=== PATIENT | male | born 1940 | race Caucasian/White ===

== ENCOUNTER 2016-03-15 09:10 | Emergency (ER) | payer OTHER ==
[~2016-03-15] VITALS: Ht 182.9 cm; Wt 122.5 kg
[2016-03-15] MEDS ORDERED: PROAIR HFA8.5 GM INH (10:09)
[2016-03-15] MEDS ORDERED: ADVAIR 500-501 EACH INH (10:09)
[2016-03-15] MEDS ORDERED: LOSARTAN POTAS100 M1 PO (10:09)
[2016-03-15] MEDS ORDERED: HYDROCHLOROTHIA25 M1 PO (10:10)
--- NOTE | 2016-03-15 10:14 | RADIOLOGY REPORT ---
EXAMINATION: XR PORTABLE CHEST CLINICAL INFORMATION: CHF. SOB. COMPARISON: None TECHNIQUE: Portable AP view of the chest was obtained. FINDINGS: Both lungs are well-expanded and clear of acute process. The heart size and pulmonary vascularity is normal. No gross bony abnormality seen. IMPRESSION: Unremarkable chest exam.
--- NOTE | 2016-03-15 11:53 | ED DYSPNEA/ASTHMA COMPLAINT ---
History of Present Illness General Chief Complaint: Dyspnea (COPD, CHF, Other) Stated Complaint: BIBA, SOB Source: patient, family, old records Exam Limitations: no limitations Vital Signs & Intake/Output Vital Signs & Intake/Output Vital Signs Date Time Temp Pulse Resp B/P Pulse O2 O2 Flow FiO2 Ox Delivery Rate 03/15 1134 98.2 70 19 178/82 94 Nasal 2.0L Cannula 03/15 1130 95 Nasal 3.0L Cannula 03/15 1004 95 Nasal 2.0L Cannula 03/15 0954 95 Nasal 3.0L Cannula 03/15 0936 97.6 68 20 180/74 95 Nasal 2.0L Cannula Allergies Uncoded Allergies: Allergy Other NKA Food Allergies NKA Med Allergies NKDA Reconcile Medications Albuterol Sulfate (Proair Hfa) 90 MCG HFA.AER.AD 2 PUF INH Q4-6 PRN PRN ASTHMA (Reported) Fluticasone/Salmeterol (Advair 500-50 Diskus) 500 MCG-50 MCG/DOSE BLST.W.DEV 1 PUF INH BID ASTHMA (Reported) Hydrochlorothiazide 25 MG TABLET 1 TAB PO DAILY FLUID (Reported) Losartan Potassium 100 MG TABLET 1 TAB PO DAILY HYPERTENSION (Reported) Triage Note: ARRIVED VIA AMBULANCE. NON PRODUCTIVE COUGH X 1 WEEK, SOB SINCE YESTERDAY. Triage Nurses Notes Reviewed? yes Onset: Last week Duration: day(s):, constant, continues in ED, getting worse Timing: recent history Severity: moderate Activities at Onset: activity Prior Episodes/Possible Cause: illness exposure Modifying Factors: Improves With: rest. Worsens With: movement. Associated Symptoms: cough, wheezing, weakness HPI: Spouse had upper respiratory infection last week. 2-3 days prior to admission patient complains of shortness of breath wet cough wheezing fatigue and increased pedal edema. He reports not taking his hydrochlorothiazide for this edema because of the need to urinate frequently. He denies chest pain nausea vomiting diarrhea abdominal pain headache dysuria rash bleeding. Past History Travel History Traveled to [place] past 21 day No Medical History Any Pertinent Medical History? see below for history Neurological: N EENT: N Cardiovascular: N Respiratory: asthma Gastrointestinal: N Hepatic: N Renal: N Musculoskeletal: N Psychiatric: N Endocrine: N Blood Disorders: N Cancer(s): N Surgical History Surgical History: non-contributory Psychosocial History What is your primary language Georgian Tobacco Use: Current Daily Use Daily Tobacco Use Amount/Type: Cigar or Pipe use daily ETOH Use: denies use Family History Hx Contributory? No Review of Systems Review of Systems Constitutional: Reports: see HPI, malaise, weakness. EENTM: Reports: no symptoms. Respiratory: Reports: see HPI, cough, short of breath, wheezing. Cardiovascular: Reports: see HPI, edema. GI: Reports: no symptoms. Genitourinary: Reports: no symptoms. Musculoskeletal: Reports: no symptoms. Skin: Reports: no symptoms. Neurological/Psychological: Reports: no symptoms. Hematologic/Endocrine: Reports: no symptoms. Immunologic/Allergic: Reports: no symptoms. All Other Systems: Reviewed and Negative Physical Exam Physical Exam General Appearance: well developed/nourished, alert, awake, anxious, moderate distress, obese Head: atraumatic, normal appearance Eyes: Bilateral: normal appearance, PERRL, EOMI. Ears, Nose, Throat: normal pharynx, normal ENT inspection Neck: normal inspection, supple, full range of motion, no midline tenderness Respiratory: chest non-tender, decreased breath sounds, crackles, rhonchi, wheezing, respiratory distress Cardiovascular: regular rate/rhythm, normal peripheral pulses, norml femoral pulses equa Peripheral Pulses: 4+ carotid (R), 4+ carotid (L) Gastrointestinal: normal bowel sounds, soft, non-tender, no organomegaly Extremities: normal inspection, normal capillary refill, normal range of motion, pedal edema Neurologic/Psych: no motor/sensory deficits, awake, alert, oriented x 3, normal gait, normal mood/affect, depressed affect Skin: intact, normal color Lymphatic: no anterior cervical samia Core Measures ACS in differential dx? No Severe Sepsis Present: No Septic Shock Present: No Progress Differential Diagnosis: asthma, bronchitis, CHF, COPD, pneumonia Plan of Care: Orders Procedure Date/time Status RAPID VIRAL INFLUENZA A 03/15 918 Complete BLOOD CULTURE 03/15 918 Active TROPONIN LEVEL 03/15 918 Complete COMPREHENSIVE METABOLIC PANEL 03/15 918 Complete CBC WITHOUT DIFFERENTIAL 03/15 918 Complete B-TYPE NATRIURETIC PEP (BNP) 03/15 918 Complete EKG 03/15 913 Active Laboratory Tests 03/15/16 1147: CBC w Diff MAN DIFF ORDERED, RBC 5.10, MCV 90.6, MCH 30.3, RDW 13.8, MPV 9.7, Gran % 93.3 H, Lymphocytes % 4.9 L, Monocytes % 1.4 L, Eosinophils % 0.2, Basophils % 0.2, Absolute Granulocytes 10.5 H, Absolute Lymphocytes 0.6 L, Absolute Monocytes 0.2, Absolute Eosinophils 0, Absolute Basophils 0, Platelet Estimate DECREASED, Normocytic RBCs VERIFIED, Normochromic RBCs VERIFIED, PUBS MCHC 33.4 03/15/16 1027: Anion Gap 12, Estimated GFR 50 L, BUN/Creatinine Ratio 17.9, Glucose 99, Calcium 9.3, Total Bilirubin 1.0, AST 22, ALT 30, Alkaline Phosphatase 82, Troponin I < 0.01, Afq-N-Jkyueyahryc Pept 344 H, Total Protein 7.2, Albumin 4.2 , Globulin 3.0, Albumin/Globulin Ratio 1.4 Microbiology 03/15 1230 BLOOD: Blood Culture - RECD Diagnostic Imaging: Viewed by Me: Radiology Read. Discussed w/RAD: Radiology Read. CXR Impression: no acute abnormality, no infiltrates Initial ED EKG: normal axis, normal intervals, normal p-waves, normal QRS complex, normal sinus rhythm, no ST T wave changes Prior EKG: unchanged Rhythm Strip: normal sinus rhythm Comments: Improved after interventions Departure Departure Time of Disposition: 1253 Disposition: HOME OR SELF CARE Condition: Stable Clinical Impression Primary Impression: Acute asthmatic bronchitis Secondary Impressions: Pedal edema Referrals: SANDI BROUSSARD MD (PCP/Family) Departure Forms: Customer Survey General Discharge Information Prescriptions: Current Visit Scripts Prednisone 1 TAB PO BID #10 TAB Amoxicillin 1 TAB PO BID #20 TAB Albuterol Sulfate 1 Vial INH/MELIDA Q4P PRN wheezing #50 Vial Ref 5 [Nebulizer] #1 UNIT Use as directed for wheezing Benzonatate (Tessalon Perle) 1 CAP PO TID #21 CAP Critical Care Note Critical Care Note Critical Care Time: non-applicable
[2016-03-15 11:54] LABS: ABSOLUTE BASOPHIL COUNT 0 /CUMM (0.0-0.2); ABSOLUTE EOSINOPHIL COUNT 0 /CUMM (0.0-0.7); ABSOLUTE GRANULOCYTE CT 10.5 /CUMM (1.4-6.5); ABSOLUTE LYMPH COUNT 0.6 /CUMM (1.2-3.4); ABSOLUTE MONOCYTE COUNT 0.2 /CUMM (0.10-0.60); BASOPHIL % 0.2 % (0.0-2.0); EOSINOPHIL % 0.2 % (0-5); GRANULOCYTE % 93.3 % (42.2-75.2); HEMATOCRIT 46.2 % (42-52); MEAN CORPUSCULAR HGB 30.3 PG (27.0-31.0); MEAN CORPUSCULAR HGB CONC 33.4 G/DL (33.0-37.0); MEAN CORPUSCULAR VOLUME 90.6 FL (80.0-94.0); MEAN PLATELET VOLUME 9.7 FL (7.4-10.4); PLATELET COUNT 129 /CUMM (130-400); RBC DISTRIBUTION WIDTH 13.8 % (11.5-14.5); WHITE BLOOD CELL COUNT 11.2 /CUMM (4.8-10.8)
[2016-03-15] MEDS ORDERED: ALBUTEROL2.5 MG/3 M INH/SOL (12:55)
[2016-03-15] MEDS ORDERED: PREDNISONE20 M1 PO (12:55)
[2016-03-15] MEDS ORDERED: Nebulizer (12:55)
[2016-03-15] MEDS ORDERED: AMOXICILLIN875 M1 PO (12:55)
[2016-03-15] MEDS ORDERED: TESSALON PERLE100 M1 PO (12:56)
[2016-03-15 13:10] VITALS: BP 170/70
== END 2016-03-15 13:11 ==
LOC: ERH 09:10
PROVIDERS: Emergency Medicine
DX: J45.909 Unspecified asthma, uncomplicated (principal); Z72.0 Tobacco use; R06.2 Wheezing; R60.0 Localized edema
CPT/HCPCS: 1263; 87040; 87804; 87804-59; 93005; 93010; 96374; 96375; J0696; J1940; J2930

== ENCOUNTER 2017-10-01 13:21 | Emergency (ER) | payer OTHER ==
[~2017-10-01] VITALS: Ht 182.9 cm; Wt 140.6 kg
[~2017-10-01 13:21] MED LIST: ADVAIR 500-501 EACH INH; ALBUTEROL2.5 MG/3 M INH/SOL; AMOXICILLIN875 M1 PO; HYDROCHLOROTHIA25 M1 PO; LOSARTAN POTAS100 M1 PO; Nebulizer; PREDNISONE20 M1 PO; PROAIR HFA8.5 GM INH; TESSALON PERLE100 M1 PO
[2017-10-01 13:48] VITALS: BP 189/87
[2017-10-01 14:39] LABS: ABSOLUTE BASOPHIL COUNT 0 /CUMM (0.0-0.2); ABSOLUTE EOSINOPHIL COUNT 0 /CUMM (0.0-0.7); ABSOLUTE LYMPH COUNT 0.6 /CUMM (1.2-3.4); ABSOLUTE MONOCYTE COUNT 0.2 /CUMM (0.10-0.60); BASOPHIL % 0.3 % (0.0-2.0); EOSINOPHIL % 0.3 % (0-5); HEMATOCRIT 41.2 % (42-52); MEAN CORPUSCULAR HGB 30.5 PG (27.0-31.0); MEAN CORPUSCULAR VOLUME 89.8 FL (80.0-94.0); MEAN PLATELET VOLUME 10.4 FL (7.4-10.4); PLATELET COUNT 151 /CUMM (130-400); RBC DISTRIBUTION WIDTH 13.9 % (11.5-14.5); RED BLOOD CELL CT 4.58 /CUMM (4.70-6.10); WHITE BLOOD CELL COUNT 6.9 /CUMM (4.8-10.8)
[2017-10-01 14:53] LABS: GRANULOCYTE % 86.9 % (42.2-75.2)
--- NOTE | 2017-10-01 15:19 | RADIOLOGY REPORT ---
EXAMINATION: XR CHEST CLINICAL INFORMATION: Shortness of breath and dizzy. COMPARISON: 03/15/2016. TECHNIQUE: 2 views of the chest were obtained. FINDINGS: Cardiomediastinal silhouette is stable. No vascular congestion or edema. Lungs well expanded. No consolidation or effusion. No pneumothorax. IMPRESSION: No acute cardiopulmonary findings.
--- NOTE | 2017-10-01 15:40 | CT SCAN REPORT ---
CT HEAD WITHOUT CONTRAST CLINICAL INFORMATION: Dizziness, weakness, and headache. COMPARISON: None available. TECHNIQUE: Contiguous axial imaging was performed from the skull base to vertex without intravenous administration of contrast. FINDINGS: There is no intracranial hemorrhage, hydrocephalus, extra-axial surface collection, midline shift, or other herniation pattern. Alvares to white matter differentiation is diffusely maintained without evidence of an evolved acute territorial infarct. The basilar cisterns are preserved. No significant soft tissue abnormality. No acute osseous abnormality. There is a small fluid level within the left sphenoid sinus which exhibits sclerotic wall thickening as the sequela of chronic sinusitis. The remaining paranasal sinuses and the mastoid air cells are clear. IMPRESSION: - No acute intracranial abnormality. - There is a small fluid level within the left sphenoid sinus which exhibits sclerotic wall thickening as the sequela of chronic sinusitis.
--- NOTE | 2017-10-01 19:09 | ED GENERAL ADULT ---
History of Present Illness General Chief Complaint: General Adult Stated Complaint: SENT BY DR DAVIDSON FOR EVAL NAUSEA,SWELLING ARMS/LEGS Source: patient, old records Exam Limitations: no limitations Vital Signs & Intake/Output Vital Signs & Intake/Output Vital Signs Date Time Temp Pulse Resp B/P B/P Pulse O2 O2 Flow FiO2 Mean Ox Delivery Rate 10/01 1348 98.7 56 24 189/87 94 Room Air Allergies Coded Allergies: No Known Allergies (10/01/17) Reconcile Medications Albuterol Sulfate (Proair Hfa) 90 MCG HFA.AER.AD 2 PUF INH Q4-6 PRN PRN ASTHMA (Reported) Albuterol Sulfate 2.5 MG/3 ML (0.083 %) VIAL.NEB 1 Vial INH/MELIDA Q4P PRN wheezing Amoxicillin 875 MG TABLET 1 TAB PO BID bronchitis Benzonatate (Tessalon Perle) 100 MG CAPSULE 1 CAP PO TID cough Fluticasone/Salmeterol (Advair 500-50 Diskus) 500 MCG-50 MCG/DOSE BLST.W.DEV 1 PUF INH BID ASTHMA (Reported) Hydrochlorothiazide 25 MG TABLET 1 TAB PO DAILY FLUID (Reported) Losartan Potassium 100 MG TABLET 1 TAB PO DAILY HYPERTENSION (Reported) [Nebulizer] bronchospasm Use as directed for wheezing Prednisone 20 MG TABLET 1 TAB PO BID bronchospasm Triage Note: [address] DAVIDSON FOR EVAL OF NAUSEA, DIZZINESS X1 DAY, FATIGUE AND SWELLING TO EXTREMITIES. COUGH IS CLEAR SPUTUM, +ORTHOPNEA. DENIES CP OR ABD PAIN. NO ACTIVE VOMITING AT THIS TIME Triage Nurses Notes Reviewed? yes HPI: Patient seen exclusively by PA. Past History Travel History Traveled to [place] past 21 day No Medical History Any Pertinent Medical History? see below for history Neurological: N EENT: N Cardiovascular: N Respiratory: asthma Gastrointestinal: N Hepatic: N Renal: N Musculoskeletal: N Psychiatric: N Endocrine: N Blood Disorders: N Cancer(s): N Surgical History Surgical History: non-contributory Psychosocial History What is your primary language Bulgarian Tobacco Use: Quit >30 days ago Family History Hx Contributory? No Review of Systems Review of Systems Constitutional: Reports: see HPI. EENTM: Reports: no symptoms. Respiratory: Reports: no symptoms. Cardiovascular: Reports: no symptoms. GI: Reports: see HPI. Genitourinary: Reports: no symptoms. Musculoskeletal: Reports: no symptoms. Skin: Reports: see HPI. Neurological/Psychological: Reports: no symptoms. Hematologic/Endocrine: Reports: no symptoms. Immunologic/Allergic: Reports: no symptoms. All Other Systems: Reviewed and Negative Physical Exam Physical Exam General Appearance: SEE BELOW Progress Differential Diagnoses I considered the following diagnoses in my evaluation of the patient: Plan of Care: Orders Procedure Date/time Status URINALYSIS 10/01 1349 Active TROPONIN LEVEL 10/01 1349 Complete LIPASE 10/01 1349 Complete COMPREHENSIVE METABOLIC PANEL 10/01 1349 Complete CBC WITHOUT DIFFERENTIAL 10/01 134 Complete B-TYPE NATRIURETIC PEP (BNP) 10/01 1349 Complete EKG 10/01 134 Active Laboratory Tests 10/01/17 1417: Anion Gap 7, Estimated GFR 42 L, BUN/Creatinine Ratio 18.8, Glucose 127 H, Calcium 9.1, Total Bilirubin 0.7, AST 19, ALT 20 L, Alkaline Phosphatase 61, Troponin I < 0.01, Iyb-F-Hvkarfmssve Pept 547 H, Total Protein 6.9, Albumin 3.9 , Globulin 3.0, Albumin/Globulin Ratio 1.3, Lipase 41, CBC w Diff NO MAN DIFF REQ, RBC 4.58 L, MCV 89.8, MCH 30.5, MCHC 34.0, RDW 13.9, MPV 10.4, Gran % 86.9 H, Lymphocytes % 9.4 L, Monocytes % 3.1, Eosinophils % 0.3, Basophils % 0.3, Absolute Granulocytes 6.0, Absolute Lymphocytes 0.6 L, Absolute Monocytes 0.2, Absolute Eosinophils 0, Absolute Basophils 0 Departure Departure Condition: Stable Referrals: Trina HUSTON,Ike Blank (PCP/Family) Departure Forms: Customer Survey General Discharge Information
--- NOTE | 2017-10-03 08:59 | ED GENERAL ADULT ---
History of Present Illness General Chief Complaint: General Adult Stated Complaint: SENT BY DR DAVIDSON FOR EVAL NAUSEA,SWELLING ARMS/LEGS Source: patient, PCP Exam Limitations: no limitations Vital Signs & Intake/Output Vital Signs & Intake/Output See triage Allergies Coded Allergies: No Known Allergies (10/01/17) Reconcile Medications Albuterol Sulfate (Proair Hfa) 90 MCG HFA.AER.AD 2 PUF INH Q4-6 PRN PRN ASTHMA (Reported) Albuterol Sulfate 2.5 MG/3 ML (0.083 %) VIAL.NEB 1 Vial INH/MELIDA Q4P PRN wheezing Amoxicillin 875 MG TABLET 1 TAB PO BID bronchitis Benzonatate (Tessalon Perle) 100 MG CAPSULE 1 CAP PO TID cough Fluticasone/Salmeterol (Advair 500-50 Diskus) 500 MCG-50 MCG/DOSE BLST.W.DEV 1 PUF INH BID ASTHMA (Reported) Hydrochlorothiazide 25 MG TABLET 1 TAB PO DAILY FLUID (Reported) Losartan Potassium 100 MG TABLET 1 TAB PO DAILY HYPERTENSION (Reported) [Nebulizer] bronchospasm Use as directed for wheezing Prednisone 20 MG TABLET 1 TAB PO BID bronchospasm Triage Note: [address] DAVIDSON FOR EVAL OF NAUSEA, DIZZINESS X1 DAY, FATIGUE AND SWELLING TO EXTREMITIES. COUGH IS CLEAR SPUTUM, +ORTHOPNEA. DENIES CP OR ABD PAIN. NO ACTIVE VOMITING AT THIS TIME Triage Nurses Notes Reviewed? yes Onset: Abrupt Duration: day(s): (1), constant, continues in ED, getting worse Timing: single episode today Injury Environment: home Severity: mild, moderate No Modifying Factors: none HPI: 77-year-old male history of asthma and hypertension presents for evaluation of nausea, dizziness and swelling in the bilateral lower extremities. Patient reports symptoms started earlier today. He was evaluated by his primary care doctor who sent him here. Patient reports an associated cough productive of clear sputum. No fever no chest pain no shortness of breath. He does report that when he lays back flat he will get short of breath and cough more. No hemoptysis. No recent surgery. He reports the dizziness is worse with movement of the head and improves at rest. Past History Travel History Traveled to [place] past 21 day No Medical History Any Pertinent Medical History? see below for history Neurological: N EENT: N Cardiovascular: N Respiratory: asthma Gastrointestinal: N Hepatic: N Renal: N Musculoskeletal: N Psychiatric: N Endocrine: N Blood Disorders: N Cancer(s): N Surgical History Surgical History: non-contributory Psychosocial History What is your primary language Romansh Tobacco Use: Quit >30 days ago Family History Hx Contributory? No Review of Systems Review of Systems Constitutional: Reports: no symptoms. EENTM: Reports: no symptoms. Respiratory: Reports: cough, orthopnea. Cardiovascular: Reports: peripheral edema. GI: Reports: see HPI, nausea. Genitourinary: Reports: no symptoms. Musculoskeletal: Reports: no symptoms. Skin: Reports: no symptoms. Neurological/Psychological: Reports: see HPI (dizzy). Hematologic/Endocrine: Reports: no symptoms. Immunologic/Allergic: Reports: no symptoms. All Other Systems: Reviewed and Negative Physical Exam Physical Exam General Appearance: well developed/nourished, no apparent distress, alert, awake , obese Head: atraumatic, normal appearance Eyes: Bilateral: normal appearance, PERRL, EOMI. Ears, Nose, Throat: hearing grossly normal Neck: normal inspection, supple, full range of motion Respiratory: normal breath sounds, chest non-tender, no respiratory distress, lungs clear Cardiovascular: regular rate/rhythm, normal peripheral pulses Gastrointestinal: soft, non-tender Back: normal inspection, normal range of motion Extremities: normal range of motion Neurologic/Psych: no motor/sensory deficits, awake, alert, oriented x 3 Skin: intact, normal color, warm/dry Core Measures ACS in differential dx? No CVA/TIA Diagnosis: No Sepsis Present: No Sepsis Focused Exam Completed? No Progress Differential Diagnoses I considered the following diagnoses in my evaluation of the patient: [Vertigo, CHF, COPD, pneumonia, CVA/TIA, electrolyte abnormality] Plan of Care: Patient was evaluated by me in triage. He is reporting dizziness lower extremity edema orthopnea. Basic blood work EKG chest x-ray and head CT were ordered. It was determined the patient had walked out of the emergency department prior to the completion of his workup. There does not appear to be any significant abnormal findings. Diagnostic Imaging: Viewed by Me: Radiology Read, CT Scan. Discussed w/RAD: Radiology Read, CT Scan. Radiology Impression: PATIENT: RAMA BLAKE PRESENT AGE: 77 PATIENT ACCOUNT NO: [id number] : 42 LOCATION: [facility] ORDERING PHYSICIAN: Narciso YEH SERVICE DATE: 10/01/17 EXAM TYPE: CAT - CT HEAD WO IV CONTRAST CT HEAD WITHOUT CONTRAST CLINICAL INFORMATION: Dizziness, weakness, and headache. COMPARISON: None available. TECHNIQUE: Contiguous axial imaging was performed from the skull base to vertex without intravenous administration of contrast. FINDINGS: There is no intracranial hemorrhage, hydrocephalus, extra-axial surface collection, midline shift, or other herniation pattern. Alvares to white matter differentiation is diffusely maintained without evidence of an evolved acute territorial infarct. The basilar cisterns are preserved. No significant soft tissue abnormality. No acute osseous abnormality. There is a small fluid level within the left sphenoid sinus which exhibits sclerotic wall thickening as the sequela of chronic sinusitis. The remaining paranasal sinuses and the mastoid air cells are clear. IMPRESSION: - No acute intracranial abnormality. - There is a small fluid level within the left sphenoid sinus which exhibits sclerotic wall thickening as the sequela of chronic sinusitis. DICTATED BY: Luis Johnson MD DATE/TIME DICTATED:10/01/171531 ANIMAL NUTRITION CONSULTANT:CÉSAR DATE/TIME TRANSCRIBED:10/01/171531 CONFIDENTIAL, DO NOT COPY WITHOUT APPROPRIATE AUTHORIZATION. <Electronically signed in Other Vendor System> SIGNED BY: Luis Johnson MD 10/01/171539 CXR Impression: PATIENT: RAMA BLAKE PRESENT AGE: 77 PATIENT ACCOUNT NO: [id number] : 42 LOCATION: [facility] ORDERING PHYSICIAN: Narciso YEH SERVICE DATE: 10/01/17 EXAM TYPE: RAD - XRY-CHEST XRAY, TWO VIEWS EXAMINATION: XR CHEST CLINICAL INFORMATION: Shortness of breath and dizzy. COMPARISON: 03/15/2016. TECHNIQUE: 2 views of the chest were obtained. FINDINGS: Cardiomediastinal silhouette is stable. No vascular congestion or edema. Lungs well expanded. No consolidation or effusion. No pneumothorax. IMPRESSION: No acute cardiopulmonary findings. DICTATED BY: Tobi Martínez MD DATE/TIME DICTATED:10/01/171514 ANIMAL NUTRITION CONSULTANT:CÉSAR DATE/TIME TRANSCRIBED:10/01/171514 CONFIDENTIAL, DO NOT COPY WITHOUT APPROPRIATE AUTHORIZATION. <Electronically signed in Other Vendor System> SIGNED BY: Tobi Martínez MD 08/17/18 1519 Initial ED EKG: normal sinus rhythm, no ST T wave changes Departure Departure Disposition: LEFT AGAINST MEDICAL ADVICE Condition: Stable Clinical Impression Primary Impression: Dizziness Referrals: Trina HUSTON,Ike Blank (PCP/Family) Departure Forms: Customer Survey General Discharge Information Critical Care Note Critical Care Note Critical Care Time: non-applicable
== END 2017-10-01 19:03 | disposition left against medical advice (07) ==
LOC: ERH 13:21
PROVIDERS: Physician Assistant Medical
DX: R42 Dizziness and giddiness (principal); R11.0 Nausea; M79.89 Other specified soft tissue disorders; R05 Cough; R06.02 Shortness of breath
CPT/HCPCS: 71046; 93005; 93010